=== PATIENT | female | born 1950 | race African-American/Black ===

== ENCOUNTER 2018-05-16 08:20 | Inpatient (IN) ==
--- NOTE | 2018-05-16 08:43 | PROVIDER DOCUMENTATION ---
HPI-Respiratory General - General Chief Complaint: Shortness of Breath Stated Complaint: SOB Time Seen by Provider: 05/16/18 12:16 Source: patient, other (poor historian) Allergies/Adverse Reactions: Patient Allergies Allergy/AdvReac Type Severity Reaction Status Date / Time No Known Allergies Allergy Verified 04/16/18 08:46 Home Medications: Home Medication List Medication Instructions Recorded Confirmed Last Taken Type Aspirin [Aspirin EC] 325 mg PO DAILY 04/17/14 04/17/14 Unknown History Ezetimibe [Zetia] 10 mg PO DAILY 04/17/14 04/17/14 Unknown History Isosorbide Mononitrate E.r. [Imdur] 30 mg PO DAILY 04/17/14 04/17/14 Unknown History Lorazepam [Ativan] 0.5 mg PO QHS #20 tablet 04/17/14 Unknown Rx Omeprazole 20 mg PO DAILY 04/17/14 04/17/14 Unknown History Ranitidine [Zantac] 150 mg PO BID 04/17/14 04/17/14 Unknown History Simvastatin 40 mg PO HS 04/17/14 04/17/14 Unknown History Benztropine Mesylate 1 mg PO BID PRN PRN 03/10/18 03/11/18 Unknown History Fluphenazine Decanoate 25 mg IM Q21D 03/10/18 03/11/18 Unknown History ATORVAstatin [Lipitor] 40 mg PO QHS #0 tablet 03/14/18 Unknown Rx Levothyroxine Sodium [Synthroid] 300 mcg PO DAILY #30 tab 03/14/18 Unknown Rx - History of Present Illness-Resp Nature of Presenting Problem: ate catfish last nite and back started having back pain and sob somehow Quality of Pain: reports: aching Severity in ED: reports: moderate Onset/Duration: reports: unsure, last night Timing: reports: still present, constant Exposure: reports: unknown cause Cough Quality/Degree: reports: productive cough Episode Frequency: frequent episodes Associated Symptoms: reports: hyperventilating, shortness of breath, wheezing. denies: nasal congestion, nasal drainage Similar Symptoms Previously?: Yes Recently seen or treated by another doctor?: Yes Review of Systems - Adult - REVIEW OF SYSTEMS - ADULT Constitutional: reports: no symptoms reported Eyes: reports: no symptoms reported Ears, Nose, Mouth & Throat: reports: no symptoms reported Cardiovascular: reports: no symptoms reported Respiratory: reports: dyspnea on exertion, shortness of breath, wheezing. denies: hemoptysis, pleurisy Gastrointestinal: reports: no symptoms reported Genitourinary: reports: no symptoms reported Musculoskeletal: reports: back pain Integumentary: reports: no symptoms reported Neurological: reports: no symptoms reported Psychiatric: reports: no symptoms reported Endocrine: reports: no symptoms reported Hematologic/Lymphatic: reports: no symptoms reported Allergic/Immunologic: reports: no symptoms reported Past History - Adult - PAST MEDICAL HISTORY-ADULT Review of Records: reports: Nursing Assessment Review, Medications Reviewed, Social history reviewed & non-contributory. Major Childhood Illnesses: reports: denies history Cardiovascular: reports: CHF, HTN, hyperlipidemia Respiratory: reports: denies history, COPD Gastrointestinal: reports: GERD Obstetrical/Gynecological: reports: denies history Genitourinary: reports: denies history Musculoskeletal: reports: denies history Neurological: reports: CVA Psychiatric: reports: psychiatric problems, schizophrenia Endocrine/Immune: reports: denies history Other Conditions: reports: denies history - PRIOR SURGERIES/PROCEDURES Surgical/Procedure History: reports: hysterectomy, other (heart, foot) - IMMUNIZATION STATUS Childhood Immunizations: See Nurse Assessment Flu Vaccine: See Nurse Assessment - FAMILY HISTORY Family History: reviewed, not pertinent - SOCIAL HISTORY Smoking: cigarettes Substance Use: none/never Living Situation: alone Physical Exam-General - PHYSICAL EXAM-ADULT Initial Vital Signs Reviewed: Yes - CONSTITUTIONAL General Appearance: mild distress - EYES Eyes: PERRL/EOMI, pink conjunctivae - HEAD, EARS, NOSE, MOUTH & THROAT HENMT: normocephalic/atraumatic, moist mucous membranes, normal ENT inspection - NECK Neck: non-tender, full range of motion, supple - RESPIRATORY Respiratory: respiratory distress, decreased breath sounds, accessory muscle use , rhonchi, wheezing - CARDIOVASCULAR Cardiovascular: regular rate, rhythm - GASTROINTESTINAL (ABDOMEN) Abdominal Exam: soft, no organomegaly - LYMPHATIC Lymphatic: no adenopathy - MUSCULOSKELETAL Back Exam: normal inspection, no CVA tenderness, no vertebral tenderness Extremity: normal range of motion, non-tender, normal gait - SKIN Integumentary: normal color, normal turgor - NEUROLOGIC Neurologic: grossly normal - PSYCHIATRIC Psych/Mental Status: oriented x 3 Progress - PLAN OF CARE/RESULTS Progress/Plan/Lab Results: Vital Signs - 8 hr 05/16/18 08:27 05/16/18 09:46 05/16/18 10:30 Temperature 96.5 F L Pulse Rate 73 95 H 71 Respiratory Rate 22 20 22 Blood Pressure 165/111 163/90 O2 Sat by Pulse Oximetry 96 92 L 92 L 05/16/18 11:34 Temperature 98.2 F Pulse Rate 71 Respiratory Rate 18 Blood Pressure 158/105 O2 Sat by Pulse Oximetry 96 Laboratory Results - last 24 hr 05/16/18 05/16/18 05/16/18 08:45 09:07 09:07 WBC 7.72 RBC 3.76 L Hgb 11.8 L Hct 37.8 MCV 100.5 H MCH 31.4 H MCHC 31.2 L RDW Std Deviation 16.0 H Plt Count 369 MPV 10.3 Immature Gran % (Auto) 0.1 Neut % (Auto) 77.4 H Lymph % (Auto) 11.5 L [place] % (Auto) 10.5 H Eos % (Auto) 0.1 Baso % (Auto) 0.4 Immature Gran # (Auto) 0.01 Neut # (Auto) 5.97 Lymph # (Auto) 0.89 L [place] # (Auto) 0.81 H Eos # (Auto) 0.01 Baso # (Auto) 0.03 PT INR PTT (Actin FS) Specimen Type ARTERIAL Sample Site R BRACHIAL pH 7.37 pCO2 47 H pO2 61 HCO3 25.7 Base Excess 1.4 Oxyhemoglobin 85.5 L* ABG O2 Sat (Calculated) 14.5 L ABG O2 Saturation 92.8 L ABG Carboxyhemoglobin 7.00 H* ABG Methemoglobin 1.0 William Test YES A-a O2 Difference 80.0 Total Hemoglobin 12.0 Lactate 1.50 Liter Flow 2.0 Blood Gas Modality CANNULA FiO2 % 28.0 Sodium Potassium Chloride Carbon Dioxide Anion Gap BUN Creatinine Estimated GFR/1.73 m2 BUN/Creatinine Ratio Glucose Calculated Osmolality Calcium Total Bilirubin AST ALT Alkaline Phosphatase Creatine Kinase Troponin T Isk-W-Qjupirnxeig Pept Total Protein Albumin Globulin Albumin/Globulin Ratio TSH 0.11 L 05/16/18 05/16/18 05/16/18 09:07 09:07 09:07 WBC RBC Hgb Hct MCV MCH MCHC RDW Std Deviation Plt Count MPV Immature Gran % (Auto) Neut % (Auto) Lymph % (Auto) [place] % (Auto) Eos % (Auto) Baso % (Auto) Immature Gran # (Auto) Neut # (Auto) Lymph # (Auto) [place] # (Auto) Eos # (Auto) Baso # (Auto) PT 14.5 INR 1.07 PTT (Actin FS) 24.2 Specimen Type Sample Site pH pCO2 pO2 HCO3 Base Excess Oxyhemoglobin ABG O2 Sat (Calculated) ABG O2 Saturation ABG Carboxyhemoglobin ABG Methemoglobin William Test A-a O2 Difference Total Hemoglobin Lactate Liter Flow Blood Gas Modality FiO2 % Sodium 138 Potassium 4.0 Chloride 99 Carbon Dioxide 26 Anion Gap 13 BUN 11 Creatinine 0.7 Estimated GFR/1.73 m2 > 60 BUN/Creatinine Ratio 16 Glucose 114 H Calculated Osmolality 276 Calcium 10.1 Total Bilirubin 1.30 H AST 28 ALT 21 Alkaline Phosphatase 150 H Creatine Kinase 112 Troponin T Tug-Q-Wqaipregfru Pept 01811 H Total Protein 7.4 Albumin 3.6 Globulin 4.0 Albumin/Globulin Ratio 1.0 TSH 05/16/18 09:07 WBC RBC Hgb Hct MCV MCH MCHC RDW Std Deviation Plt Count MPV Immature Gran % (Auto) Neut % (Auto) Lymph % (Auto) [place] % (Auto) Eos % (Auto) Baso % (Auto) Immature Gran # (Auto) Neut # (Auto) Lymph # (Auto) [place] # (Auto) Eos # (Auto) Baso # (Auto) PT INR PTT (Actin FS) Specimen Type Sample Site pH pCO2 pO2 HCO3 Base Excess Oxyhemoglobin ABG O2 Sat (Calculated) ABG O2 Saturation ABG Carboxyhemoglobin ABG Methemoglobin William Test A-a O2 Difference Total Hemoglobin Lactate Liter Flow Blood Gas Modality FiO2 % Sodium Potassium Chloride Carbon Dioxide Anion Gap BUN Creatinine Estimated GFR/1.73 m2 BUN/Creatinine Ratio Glucose Calculated Osmolality Calcium Total Bilirubin AST ALT Alkaline Phosphatase Creatine Kinase Troponin T 0.031 Wkr-T-Uwjpnubpcku Pept Total Protein Albumin Globulin Albumin/Globulin Ratio TSH Orders Category Date Time Status Admit - [facility] Routine AdmDCTranf 05/16/18 11:47 Active Cardiac Monitoring DIRECTED Care 05/16/18 08:36 Active Oxygen Therapy- ED Nursing DIRECTED Care 05/16/18 08:36 Active Saline Loc NOW Care 05/16/18 08:36 Active Vital Signs Order Q 4-HR ASSESS Care 05/16/18 11:47 Active Z-Document. for Tele Applied ORDERED Care 05/16/18 11:49 Active CHEST-2 VIEWS [RAD] Stat Exams 05/16/18 08:36 Completed ABG [RESP] Routine Lab 05/16/18 08:45 Completed CBC WITH ELECTRONIC DIFF [HEME] Stat Lab 05/16/18 09:07 Completed CK PROFILE [SP CHEM] Stat Lab 05/16/18 09:07 Completed COMPREHENSIVE METABOLIC PANEL [CHEM] Stat Lab 05/16/18 09:07 Completed PRO B-NATRIURETIC PEPTIDE Stat Lab 05/16/18 09:07 Completed PROTIME WITH INR [COAG] Stat Lab 05/16/18 09:07 Completed PTT [COAG] Stat Lab 05/16/18 09:07 Completed TROPONIN T Stat Lab 05/16/18 09:07 Completed TSH Stat Lab 05/16/18 09:07 Completed 0.9% Sodium Chloride Inj [Ns] 1,000 ml Med 05/16/18 11:47 Discontinued IV KVO Albuterol 2.5MG/Ipratrop 0.5MG [Duoneb (A & A)] Med 05/16/18 09:30 Discontinued 3 ml INH NOW ONE Aerosol Treatments Routine Oth 05/16/18 09:30 Completed Aerosol Treatments Stat Oth 05/16/18 09:30 Completed CP/SOB/Palp >45 yrs of Age Stat Oth 05/16/18 08:36 Ordered Oxygen Device Routine Oth 05/16/18 11:48 Active Telemetry [OM.EQ] Routine Oth 05/16/18 11:47 Active EKG [EKG] Stat Ther 05/16/18 08:19 Ordered Transfer/Admit Order [TRANSFER] Routine Transfer 05/16/18 11:47 Ordered Result Diagrams: 05/16/18 09:07 05/16/18 09:07 Departure - Departure Date of Disposition Decision: 05/16/18 Time of Disposition Decision: 12:15 DIAGNOSIS: CHF (congestive heart failure), COPD (chronic obstructive pulmonary disease) Disposition: ADMITTED INPATIENT 09 Certified Medical Emergency: Emergent Condition: Stable - Critical Care Note This patient required my direct & personal management of CC.: No Attestation - Physician/ KELLY Attestation Patient care was provided by Advanced Practice Provider:: No The physician spent face to face time with patient:: Yes Advanced Practice Provider documentation review:: Supervising physician onsite and consulted in the evaluation and care of this patient. The physician did have a face to face encounter with the patient.
[2018-05-16 09:10] LABS: BE 1.4 mmoll (-3.0-3.0); BLOOD TYPE ARTERIAL; HCO3-(ACT) 25.7 mmoll (20.0-26.0); O2(CT) 14.5 mL/dL (15.0-23.0); PCO2(98.6) 47 mmHg (35-45); PO2(98.6) 61 mmHg (60-100); SAMPLE BLOOD; SAO2 92.8 % (95.0-100.0); pH(98.6) 7.37 (7.35-7.45)
[2018-05-16 09:13] LABS: O2HB 85.5 % (95.0-99.0)
[2018-05-16 09:14] LABS: ALLEN TEST YES; MODALITY CANNULA
[2018-05-16 09:14] LABS: BASO# 0.03 X1000 (0.0-0.2); BASO% 0.4 % (0.0-0.8); EOS# 0.01 X1000 (0.0-0.7); EOS% 0.1 % (0.0-10.0); HEMATOCRIT 37.8 % (37.0-47.0); HEMOGLOBIN 11.8 g/dL (12.0-16.0); IMM GRAN# 0.01 X1000 (0.0-0.04); IMM GRAN% 0.1 % (0.0-0.5); LYMPH# 0.89 X1000 (1.2-3.4); LYMPH% 11.5 % (20.5-51.1); MCH 31.4 PG (27-31); MCHC 31.2 g/dL (33-37); MCV 100.5 FL (81-99); MONO# 0.81 X1000 (0.11-0.59); MONO% 10.5 % (1.7-9.3); MPV 10.3 FL (7.4-10.4); NEUT# 5.97 X1000 (1.4-6.5); NEUT% 77.4 % (42.2-75.2); PLT 369 X1000 (130-400); RBC 3.76 XMIL (4.2-5.4); WBC 7.72 X1000 (4.8-10.8)
--- NOTE | 2018-05-16 09:28 | Diag Imaging Result Doc PS360 ---
EXAM: CHEST-2 VIEWS 05/16/2018 HISTORY: sob TECHNIQUE: PA and lateral chest COMMENT: There is cardiomegaly. There is ill-defined opacity in the left lower lobe obscuring portions of the hemidiaphragm. There is also slightly increased interstitial markings throughout both lower lung [place]. This was not the case on 02/22/2014. IMPRESSION: Pulmonary edema plus minus pneumonia, particularly in the left lower lobe. Electronically signed by J Carlos Dye 05/16/2018 9:25 AM
[2018-05-16] MEDS ORDERED: DUONEB (A & A) INH ONE (09:30)
[2018-05-16 09:37] LABS: AGAP 13; ALBUMIN 3.6 g/dL (3.5-5.0); ALKALINE PHOSPHATASE 150 U/L (32-104); BUN 11 mg/dL (8-22); CALCIUM 10.1 mg/dL (8.8-10.2); CHLORIDE 99 mmol/L (98-107); CK PROFILE 112 U/L (24-173); COSMO 276; CREATININE 0.7 mg/dL (0.5-0.9); ESTIMATED GFR > 60; GLUCOSE 114 mg/dL (70-104); GOT 28 U/L (10-30); GPT 21 U/L (10-36); SODIUM 138 mmol/L (136-145); TCO2 26 mmol/L (25-35); TOTAL PROTEIN 7.4 g/dL (6.3-8.3)
[2018-05-16 09:40] LABS: INR 1.07; PROTIME 14.5 Seconds (11.0-16.0); PTT 24.2 Seconds (22.3-41.8)
[2018-05-16] MEDS ORDERED: NS 1,000 ML IV ONE (11:47)
--- NOTE | 2018-05-16 12:15 | ED EKG INTERP ---
This chart was entered by Hailey Patricio Scribe, acting as scribe for Blaine Mallory MD. EKG Interpretation - EKG Time of EKG reading by physician:: 09:30 EKG Read and Signed by:: Blaine Mallory EKG Interpretation (*Must complete 3 of following elements*): Abnormal Rate: 76 Rhythm: Accelerated Junctional [place]: normal QRS: normal [place] Interval: normal ST Wave: non-specific ST changes (consider anterolateral ischemia) Comments: Suspect sinus rhythm. -Dr. Mallory Attestation - Physician/ KELLY Attestation Patient care was provided by Advanced Practice Provider:: No The physician spent face to face time with patient:: Yes Advanced Practice Provider documentation review:: Supervising physician onsite and consulted in the evaluation and care of this patient. The physician did have a face to face encounter with the patient. This chart was documented by the indicated scribe, (Hailey Patricio Scribe) and accurately reflects the services I performed and decisions made by me, Blaine Mallory MD, as attested by the provider's signature.
[2018-05-16] MEDS ORDERED: ZOFRAN IV PRN (13:09)
[2018-05-16] MEDS ORDERED: SOLU-MEDROL IV ONE (13:10)
[2018-05-16] MEDS ORDERED: TYLENOL PO PRN (13:28)
[2018-05-16] MEDS: ROCEPHIN 1 GM in NS 50 ML IV SCH (13:48)
[2018-05-16] MEDS: LASIX IV SCH (13:48)
[2018-05-16] MEDS: ZITHROMAX 500 MG/NS 500 MG/250 ML IVPB IV SCH (13:50)
--- NOTE | 2018-05-16 14:30 | HISTORY AND PHYSICAL ---
PRIMARY CARE PHYSICIAN: Dr. Colvin. HEART DOCTOR: Dr. Torrez. CHIEF COMPLAINT: A 2-week history of shortness of breath, productive cough and wheezing that has progressively worsened. HISTORY OF PRESENTING ILLNESS: This is a 68-year-old female who presents to [facility] ER with complaints of a 2-week history of shortness of breath, productive cough and wheezing. When she arrived she had an O2 sat on 2 L at 96%. She was brought in by EMS who had already put her on oxygen, so I do not know what her room air sat was prior. She was audibly wheezing, coughing. Labs were unremarkable overall except she did have a proBNP of 28,666 with a history of congestive heart failure. She also has been noncompliant with her thyroid medication. When she was here on 03/14/2018 her TSH level was 48.21 and she had not been taking her medications. She was placed on her medications again. We rechecked it today and it is down to 0.11. Her chest x-ray showed pulmonary edema plus or minus a pneumonia, particularly in the left lower lobe. She has audible wheezing, shortness of breath at rest that worsens with talking. So, she is being admitted for further evaluation and treatment. PAST MEDICAL HISTORY: CVA, CHF, GERD, hyperlipidemia, hypertension, hypothyroidism and schizophrenia. PAST SURGICAL HISTORY: Hysterectomy and foot surgery. FAMILY HISTORY: Reviewed and noncontributory. SOCIAL HISTORY: She currently lives alone. Is a pack a day smoker and has done so for greater than 40 years. Denies any alcohol or illicit drug use. ALLERGIES: She has no known drug allergies. HOME MEDICATIONS: A current list will need to be obtained and restarted as appropriate. Placed on order for nursing to update and confirm home meds. LABORATORY DATA: Showed a white blood cell count of 7.72, hemoglobin 11.8, hematocrit 37.8, platelets 369,000. PT and INR of 14.5 and 1.07. ABG with a pH of 7.37, pCO2 of 47, PO2 61, bicarb 25.7, and this is on 2 L via nasal cannula. Sodium of 138, potassium 4, chloride 99, CO2 26, BUN of 11, creatinine 0.7, glucose 114. Cardiac enzyme was negative. ProBNP of 28,666, TSH of 0.11. Chest x-ray showed pulmonary edema plus or minus pneumonia, particularly in the left lower lobe. EKG showed an accelerated junctional rhythm at 76. REVIEW OF SYSTEMS: She denied fever or chills. She was positive for some body aches, shortness of breath, productive cough, wheezing. Denied any abdominal pain, constipation, diarrhea, burning or hurting with urination. PHYSICAL EXAMINATION: VITAL SIGNS: On arrival, she had a temperature of 96.5, pulse 73, respirations 22, blood pressure 165/111, saturating 96% on 2 L. GENERAL: This is a 68-year-old female who is lying in the bed. A difficult historian to get a clear picture at times, as she answers questions differently during interview, but overall answered questions appropriately. HEENT: Normocephalic, atraumatic. Normal ENT inspection. Oropharynx and nares are clear. Eyes: Pupils are equal, round, and reactive to light and accommodation. Extraocular movements are intact. NECK: Normal inspection. Normal range of motion. LUNGS: With wheezing and rhonchi throughout entire posterior lung [place]. Accessary muscle use noted. O2 via nasal cannula currently in use. She is notably more short of breath while trying to talk. HEART: Regular rate and rhythm. No murmurs, rubs or gallops. ABDOMEN: Soft, nontender, nondistended. Bowel sounds are present x 4 quadrants. MUSCULOSKELETAL: She has 5/5 strength x 4 extremities. NEUROLOGIC: The cranial nerves 2-12 appear grossly intact. ASSESSMENT: 1. Acute chronic obstructive pulmonary disease exacerbation. 2. Left lower lobe pneumonia. 3. An acute congestive heart failure exacerbation. 4. Tobacco abuse. PLAN: She is being admitted to the medical unit at [place]. MEDICATIONS: Placed on O2 per protocol, telemetry. Blood cultures x 2 are pending. Placed on DuoNeb q.4 hours, Lasix 40 mg IV q.12, Solu-Medrol 80 mg IV q.8, Zofran 4 mg IV q.4 hours p.r.n., Rocephin 1 gram IV q.24, azithromycin [address] on Tylenol 650 mg p.o. q.4 hours p.r.n. fever. Again, will have nursing to update and confirm home medications and recheck a CBC, BMP in the a.m. Further orders after being seen by attending. Dictated by BERNADETTE Land for Jose Manuel Bills MD cc: BERNADETTE Land MD Dr. Thomas
[2018-05-16] MEDS ORDERED: PNEUMOVAX 23 IM ONE (15:15)
[2018-05-16 15:44] LABS: BILIRUBIN URINE NEGATIVE (NEGATIVE); BLOOD URINE 1+ (NEGATIVE); CLARITY SL. CLOUDY (CLEAR); COLOR YELLOW; GLUCOSE URINE NEGATIVE (NEGATIVE); KETONE URINE NEGATIVE (NEGATIVE); LEUKOCYTES URINE 2+ (NEGATIVE); NITRITE URINE NEGATIVE (NEGATIVE); PH URINE 6.5; PROTEIN URINE TRACE mg/dL (NEGATIVE); UROBILINOGEN URINE NORMAL
[2018-05-16 15:52] LABS: URINE BACTERIA 1+ /HFP; URINE CAST NONE SEEN /LPF; URINE CRYSTAL NONE SEEN /HPF; URINE EPITHELIAL CELLS >10 /HPF (<10); URINE RBC <10 /HPF (<10); URINE SOURCE CLEAN CATCH; URINE WBC 20-40 /HPF (<10); URINE YEAST NONE SEEN /HPF
[2018-05-16] MEDS: DUONEB (A & A) INH SCH ×3 (16:58→23:13)
--- NOTE | 2018-05-16 21:08 | HISTORY AND PHYSICAL ---
ADDENDUM: This is a 68-year-old female very pleasant presenting with shortness of breath for last week or 2, very elevated proBNP. Her chest x-ray was read as pulmonary edema, possible plus or minus pneumonia. She has a very generous heart and this was on a PA but significant cardiomegaly. Pulmonary exam revealed some rales and wheezing. She will be admitted for treatment COPD, CHF exacerbation. I think she probably has a left lower lobe pneumonia. Diuretics, steroids, breathing treatments and empiric antibiotics, repeat her x-ray in the next day or 2 and see how she does. This is a [id number] encounter note with Padmini Grey. cc: Jose Manuel Bills MD
[2018-05-16] MEDS: SOLU-MEDROL IV SCH (22:09)
[2018-05-17] MEDS: LASIX IV SCH ×2 (01:38→13:04)
[2018-05-17] MEDS: DUONEB (A & A) INH SCH ×6 (03:22→23:22)
[2018-05-17] MEDS: SOLU-MEDROL IV SCH ×3 (06:42→22:08)
[2018-05-17 07:17] LABS: HEMATOCRIT 34.9 % (37.0-47.0); HEMOGLOBIN 10.8 g/dL (12.0-16.0); LYMPH# 0.42 X1000 (1.2-3.4); LYMPH% 13.2 % (20.5-51.1); MCHC 30.9 g/dL (33-37); MCV 100.3 FL (81-99); MONO# 0.05 X1000 (0.11-0.59); MONO% 1.6 % (1.7-9.3); MPV 10.8 FL (7.4-10.4); NEUT# 2.72 X1000 (1.4-6.5); NEUT% 85.2 % (42.2-75.2); PLT 317 X1000 (130-400); RBC 3.48 XMIL (4.2-5.4); RDW 15.9 % (11.5-14.5); WBC 3.19 X1000 (4.8-10.8)
[2018-05-17 07:27] LABS: AGAP 12; BUN 19 mg/dL (8-22); CALCIUM 9.4 mg/dL (8.8-10.2); CHLORIDE 99 mmol/L (98-107); COSMO 285; CREATININE 0.9 mg/dL (0.5-0.9); ESTIMATED GFR > 60; GLUCOSE 217 mg/dL (70-104); POTASSIUM 3.9 mmol/L (3.5-5.1); SODIUM 138 mmol/L (136-145); TCO2 28 mmol/L (25-35)
[2018-05-17 07:28] LABS: BANDS 2 % (0-1); LYMPHS 16 % (21-51); SEGS 82 % (42-75)
[2018-05-17 07:29] LABS: HYPOCHROM OCCASIONAL; POIKILOCYTOSIS 1+; POLYCHROM 1+
[2018-05-17 07:30] LABS: LARGE PLATELETS OCCASIONAL; OVALOCYTES OCCASIONAL; STOMATOCYTES OCCASIONAL; TARGET CELLS OCCASIONAL
[2018-05-17] MEDS ORDERED: COGENTIN PO PRN (09:05)
--- NOTE | 2018-05-17 12:55 | PROGRESS NOTE ---
DATE: 05/17/2018 SUBJECTIVE: She is sleeping. She wakes up, she just really does not want to participate. Much more awake yesterday. Breathing has improved. I do not appreciate any wheezing or rales at this point. OBJECTIVE: Vital signs: Blood pressure is 116/60, heart rate of 58, respiratory rate of 18. Cardiovascular: Regular rate and rhythm. Pulmonary: Bilateral breath sounds. Clear to auscultation. GI: Soft, nontender, nondistended. Bowel sounds are positive. LABORATORY DATA: White count 3, hemoglobin and hematocrit 10 and 34, platelets were 317,000. Basic was normal. ProBNP actually got worse, greater than 3500. PROBLEM LIST: 1. Pneumonia with chronic obstructive pulmonary disease exacerbation. We will continue empiric antibiotics. She is on breathing treatments. Seems to be doing okay. 2. Acute congestive heart failure exacerbation. She seems to be doing better from that standpoint as well. We will continue diuretics now. Her proBNP is elevated, but overall she has improved. Repeat her chest x-ray tomorrow. 3. Hypothyroidism, we will continue her treatments now. She usually is on 300, but she is overtreated, so we will decrease her to 250 and see how she does. We will need to repeat her levels in a couple of days and definitely 4 to 6 weeks. 4. Disposition pending clinical status. I think she will probably need another day or so depending on how she has improved. May also need to repeat her echo. I will see when the last time that was accomplished, and follow. Echo was done in 2015. She actually had one in February that showed a normal EF, so she may have some diastolic dysfunction. cc: Jose Manuel Bills MD
[2018-05-17] MEDS: ROCEPHIN 1 GM in NS 50 ML IV SCH (13:04)
[2018-05-17] MEDS: ZITHROMAX 500 MG/NS 500 MG/250 ML IVPB IV SCH (13:14)
[2018-05-17] MEDS: LIPITOR PO SCH (22:08)
[2018-05-18] MEDS: LASIX IV SCH ×2 (01:17→14:14)
[2018-05-18] MEDS: DUONEB (A & A) INH SCH ×3 (03:00→12:05)
[2018-05-18] MEDS ORDERED: CARDIZEM IV ONE (03:02)
--- NOTE | 2018-05-18 04:10 | EKG Report ---
Test Performed on : 05/18/2018 02:02:01 AM Test Reason : chest pain Blood Pressure : / mmHG Vent. Rate : 137 BPM Atrial Rate : 122 BPM P-R Int : 000 ms QRS Dur : 130 ms QT Int : 326 ms P-R-T Axes : 000 015 170 degrees QTc Int : 492 ms Atrial fibrillation. with rapid ventricular response. Left ventricular hypertrophy with QRS widening ST elevation, consider early repolarization, pericarditis, or injury T wave abnormality, consider inferolateral ischemia Abnormal ECG When compared with ECG of 16-MAY-2018 09:30, (Unconfirmed) Significant changes have occurred Unconfirmed Result
[2018-05-18 05:41] LABS: HEMATOCRIT 34.1 % (37.0-47.0); HEMOGLOBIN 10.4 g/dL (12.0-16.0); IMM GRAN# 0.01 X1000 (0.0-0.04); IMM GRAN% 0.1 % (0.0-0.5); LYMPH# 0.41 X1000 (1.2-3.4); LYMPH% 4.9 % (20.5-51.1); MCH 30.8 PG (27-31); MCHC 30.5 g/dL (33-37); MCV 100.9 FL (81-99); MONO# 0.33 X1000 (0.11-0.59); MONO% 3.9 % (1.7-9.3); MPV 10.4 FL (7.4-10.4); NEUT# 7.65 X1000 (1.4-6.5); NEUT% 91.1 % (42.2-75.2); PLT 303 X1000 (130-400); RBC 3.38 XMIL (4.2-5.4); RDW 16.2 % (11.5-14.5)
[2018-05-18 05:43] LABS: AGAP 10; BUN 22 mg/dL (8-22); CALCIUM 9.7 mg/dL (8.8-10.2); CHLORIDE 93 mmol/L (98-107); COSMO 277; CREATININE 0.8 mg/dL (0.5-0.9); ESTIMATED GFR > 60; GLUCOSE 163 mg/dL (70-104); MAGNESIUM 1.7 mg/dL (1.5-2.7); POTASSIUM 3.7 mmol/L (3.5-5.1); SODIUM 135 mmol/L (136-145); TCO2 32 mmol/L (25-35)
[2018-05-18] MEDS: SOLU-MEDROL IV SCH ×3 (06:18→22:36)
--- NOTE | 2018-05-18 07:23 | Diag Imaging Result Doc PS360 ---
EXAM: CHEST-PORTABLE HISTORY: dyspnea TECHNIQUE: Portable chest two views COMPARISON: 05/16/2018 FINDINGS: The lungs are well expanded. The heart remains enlarged. There are sternal wires and surgical clips. No pleural effusions identified. No consolidation. IMPRESSION: Cardiomegaly. Interval improvement in the pulmonary edema. Electronically signed by Hugh Mcdonald 05/18/2018 7:21 AM
[2018-05-18] MEDS ORDERED: SYNTHROID PO SCH (09:00)
[2018-05-18 09:03] LABS: ANISOCYTOSIS 1+; LYMPHS 5 % (21-51); MONO 3 % (1-9); SEGS 92 % (42-75)
[2018-05-18] MEDS: PEPCID PO SCH (09:10)
[2018-05-18] MEDS: CARDIZEM PO SCH ×3 (09:10→20:13)
[2018-05-18] MEDS: ASPIRIN EC PO SCH (09:10)
--- NOTE | 2018-05-18 10:24 | EKG Report ---
Test Performed on : 05/16/2018 09:30:13 AM Test Reason : AFIB Blood Pressure : / mmHG Vent. Rate : 076 BPM Atrial Rate : 077 BPM P-R Int : 000 ms QRS Dur : 112 ms QT Int : 416 ms P-R-T Axes : 000 019 159 degrees QTc Int : 468 ms Accelerated Junctional rhythm. ST & T wave abnormality, consider anterolateral ischemia Abnormal ECG When compared with ECG of 12-MAR-2018 09:54, Junctional rhythm. has replaced Sinus rhythm. Vent. rate has increased BY 41 BPM QRS duration has increased T wave inversion less evident in Lateral leads QT has lengthened Unconfirmed Result
[2018-05-18] MEDS: ROCEPHIN 1 GM in NS 50 ML IV SCH (14:14)
[2018-05-18] MEDS: ZITHROMAX 500 MG/NS 500 MG/250 ML IVPB IV SCH (14:21)
[2018-05-18] MEDS: ATROVENT NEB INH SCH ×3 (16:00→23:06)
[2018-05-18] MEDS: XOPENEX NEB INH SCH ×3 (16:00→23:06)
[2018-05-18] MEDS: LIPITOR PO SCH (20:13)
--- NOTE | 2018-05-19 01:26 | PROGRESS NOTE ---
DATE: 05/18/2018 SUBJECTIVE: The patient has no new complaints. She states overall she is feeling a little bit better. She is breathing a little bit easier. PHYSICAL EXAMINATION: Vital Signs: Temperature 97.7, pulse 115, respiratory rate 22, BP 147/78. General: The patient is awake and alert. She is currently in mild respiratory distress. HEENT: Normocephalic. Neck: Supple. CARDIOVASCULAR: Regular rate. No murmurs. Chest: Clear and nonlabored. Abdomen: Soft. Extremities: Moves all extremities. ASSESSMENT: 1. Chronic obstructive pulmonary disease with acute exacerbation. 2. Left lower lobe pneumonia. 3. Atrial fibrillation with rapid ventricular response. 4. Congestive heart failure, systolic, with exacerbation. PLAN: We will continue Cardizem p.o., continue Lasix 40 IV, decrease Solu-Medrol to 40 q.12h and we will follow. cc: Lucas Painter MD
[2018-05-19] MEDS: CARDIZEM PO SCH ×4 (02:18→22:22)
[2018-05-19] MEDS: XOPENEX NEB INH SCH ×6 (03:13→23:12)
[2018-05-19] MEDS: ATROVENT NEB INH SCH ×6 (03:13→23:12)
[2018-05-19] MEDS: LASIX IV SCH ×2 (05:48→17:45)
[2018-05-19] MEDS: SOLU-MEDROL IV SCH ×3 (05:48→22:22)
[2018-05-19] MEDS ORDERED: ZITHROMAX 500 MG/NS 500 MG/250 ML IVPB IV SCH (06:25)
[2018-05-19] MEDS ORDERED: SYNTHROID PO SCH (07:00)
[2018-05-19] MEDS: PEPCID PO SCH (08:55)
[2018-05-19] MEDS: ASPIRIN EC PO SCH (08:55)
[2018-05-19] MEDS: ZITHROMAX PO SCH (08:56)
[2018-05-19] MEDS: ROCEPHIN 1 GM in NS 50 ML IV SCH (14:11)
[2018-05-19] MEDS: LIPITOR PO SCH (22:22)
--- NOTE | 2018-05-20 03:04 | PROGRESS NOTE ---
DATE: 05/19/2018 SUBJECTIVE: The patient denies any current palpitations. States she is still tired and fatigued, still having some shortness of breath. Denies any chest pains or palpitations. Denies any diarrhea, constipation, or melena. PHYSICAL EXAMINATION: Vital Signs: Temperature 98, pulse 100-120, respiratory rate 20, BP 106/64. General: The patient is awake, alert, a very pleasant to talk female who is sometimes difficult to get to answer questions. HEENT: Normocephalic and atraumatic. Neck: Supple. Cardiovascular: Irregular rate, irregular rhythm. Chest: Positive wheezing diffusely throughout. No crackles. No rhonchi. Abdomen: Soft, nondistended, nontender. Extremities: Moves all extremities. ASSESSMENT: 1. Chronic obstructive pulmonary disease with exacerbation. 2. Atrial fibrillation with rapid ventricular response. Continue Cardizem. Has improved with the addition of Cardizem. We may need to increase the dose if her blood pressures can stand it. 3. Chronic tobacco abuse. 4. Congestive heart failure. 5. 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 PLAN: 1. The patient's TSH remains very low at 0.04. Therefore, we will decrease her Synthroid from 250 to 150, and recheck TSH and follow. 2. Atrial fibrillation with rapid ventricular response. Continue Cardizem 30 q.6. It this is not improved tomorrow, we will need to consider increasing to 60 q.6. We will decrease Solu- Medrol to q.12 and we will follow. cc: Lucas Painter MD
[2018-05-20] MEDS: XOPENEX NEB INH SCH ×6 (03:32→23:40)
[2018-05-20] MEDS: ATROVENT NEB INH SCH ×6 (03:32→23:40)
[2018-05-20] MEDS: SYNTHROID PO SCH (06:13)
[2018-05-20] MEDS: LASIX IV SCH (06:13)
[2018-05-20] MEDS: SOLU-MEDROL IV SCH ×2 (06:13→17:33)
[2018-05-20 07:18] LABS: HEMATOCRIT 36.7 % (37.0-47.0); MCH 30.3 PG (27-31); MCV 101.1 FL (81-99); MPV 10.5 FL (7.4-10.4); RBC 3.63 XMIL (4.2-5.4); RDW 16.2 % (11.5-14.5); WBC 5.33 X1000 (4.8-10.8)
[2018-05-20 07:57] LABS: AGAP 13; ALBUMIN 3.3 g/dL (3.5-5.0); ALKALINE PHOSPHATASE 98 U/L (32-104); BUN 31 mg/dL (8-22); CALCIUM 10.1 mg/dL (8.8-10.2); CHLORIDE 92 mmol/L (98-107); COSMO 293; CREATININE 0.7 mg/dL (0.5-0.9); ESTIMATED GFR > 60; GLUCOSE 163 mg/dL (70-104); GOT 14 U/L (10-30); GPT 14 U/L (10-36); POTASSIUM 3.9 mmol/L (3.5-5.1); SODIUM 142 mmol/L (136-145); TCO2 37 mmol/L (25-35); TOTAL PROTEIN 6.4 g/dL (6.3-8.3)
[2018-05-20] MEDS: PEPCID PO SCH (09:32)
[2018-05-20] MEDS: ZITHROMAX PO SCH (09:32)
[2018-05-20] MEDS: ASPIRIN EC PO SCH (09:32)
[2018-05-20] MEDS: CARDIZEM PO SCH ×3 (09:32→20:21)
[2018-05-20] MEDS ORDERED: ROBITUSSIN-DM PO PRN (11:46)
[2018-05-20] MEDS: ROCEPHIN 1 GM in NS 50 ML IV SCH (13:03)
--- NOTE | 2018-05-20 18:33 | PROGRESS NOTE ---
DATE: 05/20/2018 SUBJECTIVE: Patient notes that she is feeling better. Denies any chest pain, palpitations. Denies any fevers currently. PHYSICAL EXAMINATION: Vital Signs: Temp 97.3, pulse currently 58. She has been rate controlled over the past 24 hours. Prior to that it was in the 130s,. Respiratory rate 18, BP 113/58. General: Patient is awake, alert. She is sitting on the side of the bed. She is currently in no respiratory distress. HEENT: Normocephalic. Neck: Supple. Cardiovascular: Regular rate, no murmurs. Appears sinus rhythm. Chest: Clear, nonlabored. Abdomen: Soft, nondistended. Extremities: Moves all extremities. ASSESSMENT: 1. Acute hypoxic respiratory failure. Patient currently is on oxygen. She is not on oxygen at home. We will attempt to wean off and see how she does. 2. Chronic obstructive pulmonary disease with exacerbation. 3. Left lower lobe pneumonia. 4. Acute congestive heart failure exacerbation, continues to improve. She is -1 L yesterday. 5. Chronic tobacco abuse. 6. Atrial fibrillation with rapid ventricular rate. Currently she appears to be in sinus rhythm. She certainly is rate controlled. 7. Hyperthyroidism. Patient is on Synthroid. We have decreased the dose. We will recheck her thyroid level in the morning. PLAN: We will check thyroid in the morning. We will attempt to wean off oxygen. We will decrease her Lasix to q.24 IV 40 mg. If she tolerates this, she may be able to discharge home tomorrow. We will decrease Solu-Medrol to 40 q.12h as well. She is currently tolerating Cardizem 60 mg 3 times a day. Will attempt physical therapy. cc: Lucas Painter MD
[2018-05-20] MEDS: LIPITOR PO SCH (20:21)
[2018-05-21] MEDS: XOPENEX NEB INH SCH ×4 (04:03→16:19)
[2018-05-21] MEDS: ATROVENT NEB INH SCH ×4 (04:03→16:19)
[2018-05-21] MEDS: SYNTHROID PO SCH (06:09)
[2018-05-21] MEDS: SOLU-MEDROL IV SCH ×2 (06:09→17:30)
[2018-05-21 06:57] LABS: HEMATOCRIT 40.3 % (37.0-47.0); HEMOGLOBIN 12.1 g/dL (12.0-16.0); MCH 30.3 PG (27-31); MCV 100.8 FL (81-99); MPV 10.4 FL (7.4-10.4); RDW 15.9 % (11.5-14.5); WBC 5.12 X1000 (4.8-10.8)
[2018-05-21 07:12] LABS: AGAP 11; ALBUMIN 3.4 g/dL (3.5-5.0); ALKALINE PHOSPHATASE 94 U/L (32-104); BUN 31 mg/dL (8-22); CALCIUM 9.9 mg/dL (8.8-10.2); CHLORIDE 90 mmol/L (98-107); COSMO 290; CREATININE 0.8 mg/dL (0.5-0.9); ESTIMATED GFR > 60; GLUCOSE 172 mg/dL (70-104); GOT 14 U/L (10-30); GPT 14 U/L (10-36); MAGNESIUM 2.2 mg/dL (1.5-2.7); POTASSIUM 3.6 mmol/L (3.5-5.1); SODIUM 140 mmol/L (136-145); TCO2 39 mmol/L (25-35); TOTAL PROTEIN 6.7 g/dL (6.3-8.3)
[2018-05-21] MEDS: CARDIZEM PO SCH ×2 (08:27→17:52)
[2018-05-21] MEDS: ZITHROMAX PO SCH (08:27)
[2018-05-21] MEDS: PEPCID PO SCH (08:27)
[2018-05-21] MEDS: ASPIRIN EC PO SCH (08:27)
[2018-05-21] MEDS ORDERED: LASIX PO SCH (09:00)
[2018-05-21] MEDS ORDERED: LASIX IV SCH (09:00)
[2018-05-21 11:55] VITALS: BP 119/65
[2018-05-21] MEDS: ROCEPHIN 1 GM in NS 50 ML IV SCH (12:16)
--- NOTE | 2018-05-22 08:41 | DISCHARGE SUMMARY ---
ADMISSION DATE: 05/16/2018 DISCHARGE DATE: 05/21/2018 PRIMARY CARE PHYSICIAN: Dr. Colvin. HEART DOCTOR: Dr. Torrez. DISCHARGE DIAGNOSES: 1. Acute on chronic, chronic obstructive pulmonary disease exacerbation. 2. Left lower lobe pneumonia. 3. Acute hypoxic respiratory failure. 4. Hyperthyroid in a patient with hypothyroid secondary to medication. 5. Acute congestive heart failure, systolic in the setting of chronic systolic heart failure. 6. Atrial fibrillation with rapid ventricular rate, now controlled. DIAGNOSTICS: 1. 05/16/2018 chest x-ray reveals pulmonary edema plus or minus pneumonia in the left lower lobe. 2. 05/18/2018 chest x-ray reveals cardiomegaly with interval improvement of pulmonary edema. No consolidation. MICROBIOLOGY: 1. Blood cultures x2 revealed no growth after 48 hours. 2. Urine culture revealed mixed olive. IMAGING: EKG revealed atrial fibrillation with RVR at a rate of 137. HOSPITAL COURSE: Ms. Mei presented to the emergency room with a 2-week history of shortness of breath, productive cough and wheezing. She was found to be in acute systolic heart failure exacerbation, as well as a COPD exacerbation, and left lower lobe pneumonia. She was admitted with DuoNebs q. 4 hours and q. 2 hours p.r.n., along with supplemental oxygen and steroids to taper, which she tolerated well. O2 saturations were initially at 90 to 92. They have since remained at 97 to 100 on 2 L nasal cannula. Her TSH was 0.11 with a free T4 of 1.81. On admission, we held her levothyroxine. TSH was then checked on 05/18/2018, as well as 05/21/2018. Both were 0.04. We held levothyroxine throughout the hospitalization. The patient was instructed verbally, as well as in writing to hold the medication until she followed up with her primary care physician in a week and have TSH redrawn and instructions from her primary care physician, Dr. Panchal. She did convert to a sinus rhythm with PACs. We did discuss with the patient the perils of continuing to smoke in the setting of heart failure and COPD that could ultimately end in her demise, as well as ways for smoking cessation, including written materials and offering of medications. DISCHARGE VITAL SIGNS: Blood pressure is 119/65 with a heart rate of 65, respirations 18, temperature is 97.5 degrees oral with O2 saturation 96% to 100% on 2 L nasal cannula. PHYSICAL EXAM: Cardiovascular: Regular rate and rhythm. S1, S2 appreciated. She has no lower extremity edema with peripheral pulses palpable x4 extremities. Pulmonary: Breath sounds are diminished. They are clear. Chest rises and falls symmetric to respiration. Gastrointestinal: Abdomen is soft, nontender, nondistended with bowel sounds in all 4 quadrants. DISCHARGE MEDICATIONS: 1. Aspirin 325 mg p.o. daily. 2. Benztropine Mesylate 1 mg p.o. b.i.d. 3. Pepcid 40 mg p.o. daily. 4. Lipitor 40 mg p.o. at bedtime. 5. Z-Jung, take as directed. 6. Omnicef 300 mg p.o. b.i.d. for 5 days. 7. Cardizem 60 mg p.o. at 9 a.m. 3 p.m. and 9 p.m. 8. Lasix 40 mg p.o. daily. 9. Medrol Dosepak, take as directed. 10. Robitussin DM 10 mL q. 4 hours p.r.n. FOLLOWUP: She is to follow up with his primary care provider, Dr. Main Colvin. He has been instructed that the staff will make an appointment for him; they will call him tomorrow with this appointment. She has been instructed if she does not hear from someone by lunchtime or after, that she needs to call Dr. Colvin. She is being discharged home in stable condition with family members. TIME SPENT: This is a greater than 30 minute discharge. Dictated by BERNADETTE Cobb for Lucas Painter MD This chart was documented by, BERNADETTE Cobb and accurately reflects the services performed, treatment plan and medical decisions as attested by the providers signature Lucas Painter MD. cc: BERNADETTE Cobb MD Wayne E. Thomas, MD
--- NOTE | 2018-05-22 08:44 | DISCHARGE SUMMARY ---
ADMISSION DATE: 05/16/2018 DISCHARGE DATE: 05/21/2018 ADDENDUM: Patient seen and examined by myself. Full note dictated and discussed with nurse practitioner. On discharge, patient is awake, alert. She is in no respiratory distress. She was admitted with a COPD exacerbation with lower lobe pneumonia. Overall, continues to improve. She will be discharged home on antibiotics steroids. Her TSH remains low. Therefore, we will hold her Synthroid and will have her follow up with her primary care. cc: Lucas Painter MD
== END 2018-05-21 19:48 | disposition home or self-care (01) | DRG 291 ==
LOC: P.ED 08:20 → P.MEDSURG 08:20 → SUATTDRO 15:01
PROVIDERS: ATTEND Family Medicine
CPT/HCPCS: 71010; 71020; 71045; 71046; 80048; 80053; 81001; 82550; 82805; 83735; 83880; 84439; 84443; 84484; 85025; 85027; 85610; 85730; 87040; 87088; 93005; 94640; 94761; 97116; 97161; 97530; 99285; A9270; J0456; J0696; J1940; J2920; J2930; J7030